=== PATIENT | male | born 1995 | race African-American/Black ===

== ENCOUNTER 2017-11-13 17:09 | Emergency (ER) | payer MEDICAID ==
[~2017-11-13] VITALS: Ht 200.7 cm; Wt 74.5 kg
[2017-11-13 17:25] VITALS: BP 124/76
== END 2017-11-13 21:00 | disposition left against medical advice (07) ==
LOC: ER 17:30
DX: Z11.59 Encounter for screening for other viral diseases (principal); F17.200 Nicotine dependence, unspecified, uncomplicated; F12.10 Cannabis abuse, uncomplicated
CPT/HCPCS: 99281

== ENCOUNTER 2017-11-17 19:31 | Emergency (ER) | payer MEDICAID ==
[~2017-11-17] VITALS: Ht 198.1 cm; Wt 75.0 kg
[2017-11-17 19:33] VITALS: BP 118/78
== END 2017-11-18 02:00 | disposition left against medical advice (07) ==
LOC: ER 20:09
DX: R42 Dizziness and giddiness (principal); Z53.21 Procedure and treatment not carried out due to patient leaving prior to being seen by health care provider